=== PATIENT | female | born 1935 | race Caucasian/White ===

== ENCOUNTER 2025-08-29 14:05 | Observation (INO) | payer MEDICARE, SELFPAY ==
[2025-08-29 10:06] VITALS: BMI 28.4
[2025-08-29 10:07] VITALS: BP 105/56
[2025-08-29 10:52] VITALS: BMI 29.1
[2025-08-29 10:58] VITALS: BP 102/55
[2025-08-29 11:00] VITALS: BP 102/49
--- NOTE | 2025-08-29 11:21 | ED.GENMED ---
History of Present Illness
General
Chief Complaint: Urinary Symptoms
Source: patient and family
Exam Limitations: none
Time Seen by Provider: 08/29/25 11:00
Nursing documentation reviewed up to this point in time: agreed with
History of Present Illness
History of Present Illness:
89-year-old female with a past medical history of mild dementia, RA, history of breast cancer status postlumpectomy who presents to the emergency department for evaluation after seizure-like episode. Family is at bedside and provides most of
history. Apparently she was in her normal state of health prior to episode today�she is able to feed herself, ambulatory with a walker, able to have basic conversation but has mild dementia, not able to tell you the year and poor short-term recall.
Family says that she was sitting at table this morning and she had witnessed episode where she suddenly had blank forward stare and was not responding and had some rhythmic movement of her left hand. No tonic-clonic movements in the rest of her
body. She did not fall down. It sounds like this episode lasted for few minutes and after this she was very lethargic/confused for about 15 minutes and since then has returned to her baseline. She has never had similar episode in the past, no
known history of seizures. She again was in her normal state of health prior to onset has not been sick with fever, chills, abdominal pain; the family suggest that her urine may have been a bit more concentrated recently but otherwise nothing of
note as far as symptoms leading up to this. When asked the patient how she is feeling she indicates that she is comfortable and not in any pain. She is very limited historian due to her dementia--she cannot tell me exactly what happened and is not
sure exactly why she is here.
Review of Systems
Review of Systems
Unable to obtain full review of systems at this time due to: dementia
All Other Systems: Not applicable
Phy Exam
Physical Exam
Physical Exam:
General: Awake, alert, oriented x2; no acute distress
Head: Normocephalic, atraumatic
Eyes: Conjunctiva normal, EOMI, pupils equal round reactive to light bilaterally
Throat: Airway intact, handling secretions, tongue atraumatic
Neck: Trachea midline, supple without meningismus
Lungs: Clear to auscultation bilaterally, no wheezing, rales, rhonchi
Heart: Regular rate and rhythm, no murmurs, gallops, or rubs
Abd: Soft, non distended, nontender
Neuro: Cranial nerves intact, speech fluid, motor and sensory intact in all extremities, following commands consistently
Skin: Warm and dry
Extremities: Warm and well-perfused
Scores
Heart Failure Risk
Heart Failure Risk Score: Not Applicable
Heart Score for Chest Pain Patients
STEMI patient?: Not applicable
Withdrawal Assessment of Alcohol
Withdrawal Assessment Completed?: Not applicable
Course
Orders/Labs/Results
Orders:
Orders
08/29/25 11:06
Electrocardiogram (*1) Urgent
Reason for Study: Fatigue / Weakness
EKG- Treatment ONCE
08/29/25 11:16
Electrocardiogram (*1) Urgent
Reason for Study: Fatigue / Weakness
CT Head W/o Iv Contrast Urgent
Comment:
Reason For Exam: seizure
EKG- Treatment ONCE
08/29/25 11:31
Basic Metabolic Panel Urgent
Complete Blood Count/With Diff Urgent
TSH Reflex To Free T4 Urgent
Troponin I Urgent
08/29/25 11:32
Urinalysis Reflex To Culture Urgent
Date Specimen was Collected: 08/29/25
Time Specimen was Collected: 11:30
Urine Microscopic Reflex Cult Urgent
Urine Culture Urgent
JOSE M Source: U
Specimen Description:
Date Specimen was Collected: 08/29/25
Time Specimen was Collected: 11:30
08/29/25 13:24
NEUROLOGY CONSULT Urgent
Consulting Provider: Blayne Coronel
Was physician already notified: Yes
Abnormal Lab Results
08/29/25 08/29/25
11:31 11:32
MCH 34.3 H pg
(27.0-31.0)
Absolute Neuts (auto) 7.1 H 10^3/uL
(1.4-6.5)
Absolute Lymphs (auto) 0.8 L 10^3/uL
(1.2-3.4)
Neutrophils % 81.3 H %
(42.2-75.2)
Lymphocytes % 9.0 L %
(20.5-51.1)
Chloride 108 H mmol/L
(98-107)
Urine Ketones 1+ A
(Negative)
Leukocyte Esterase Rfl 1+ A
(Negative)
Urine Albumin (Reflex) 2+ A
(Neg - Trace)
08/29/25 11:31
08/29/25 11:31
Vital Signs
Initial and Last Documented VS:
Initial Vital Signs
Temp Pulse Resp BP Pulse Ox
36.3 C 74 18 105/56 98
08/29/25 10:07 08/29/25 10:07 08/29/25 10:07 08/29/25 10:07 08/29/25 10:07
Last Documented Vital Signs
Temp Pulse Resp BP Pulse Ox
36.3 C 77 21 102/49 98
08/29/25 10:07 08/29/25 12:30 08/29/25 12:30 08/29/25 11:00 08/29/25 11:30
MDM/Problems Addressed
Differential Diagnosis Includes:
Seizure-like episode: Focal seizure�could be caused by electrolyte derangement, infection, brain mass, brain bleed; unlikely primary seizure disorder at this age... this could have also been a syncopal event although it sounds like her eyes were
open and she was staring rather than necessarily becoming abruptly unresponsive or slumping over, and there was some rhythmic movement of the hand and what sounds like a rather defined postictal period
MDM/Problems Addressed:
89-year-old female presents to the emergency department accompanied by her family after apparent seizure that she had episode of staring with rhythmic movement of the hand followed by about 15 minutes of lethargy/confusion before complete return to
her baseline. No history of seizures, has otherwise been in her normal state of health. Vital signs here are acceptable. Physical exam as above. Plan to check labs including CBC and CMP. Will check EKG. Check CT head. Check urinalysis. Will
monitor and reassess after the above.
CT head no acute abnormality. Labs and urinalysis pending.
Labs reviewed: CBC and CMP no clinically significant abnormalities. Urinalysis not clearly infected although micro and culture pending. No clear trigger for seizure at this point. Discussed with neurology recommended admission, MRI, EEG.
Discussed with hospitalist.
Chronic conditions affecting care:
Dementia
*Radiology
Radiology exam reviewed: radiology read reviewed
*Pulse Oximetry
SaO2: 98
Oxygen Mode of Delivery: Room air
Patient hypoxic: no (98%)
*Critical Care Note
Total Time (30-74mins, 75-104mins- exclusive of procedures): Not Applicable
Data Reviewed
Source: patient and family
Patient Management
Discussion with other providers: Hospitalist (Discussed with hospitalist) and Speech Language Pathologist (Discussed with neurologist)
Escalation/DeEscalation of care consider admission/obs:
Admission indicated
ED Attending Note
-
Portions of this chart may have been created with voice recognition software.� Occasional wrong word or��sound alike� substitutions may have occurred due to the inherent limitations of voice recognition software.
Discharge Plan
Departure
Patient Disposition: Admit
Date of Disposition: 08/29/25
Time of Disposition: 13:24
Admit to doctor: Jose Manuel
Presentation/result/management discussed w/ accepting MD/DO: Hospitalist
Discharge Problem:
Seizure
Referrals:
UNKNOWN - PT NOT,INTERVIEWE [Family Provider]
Interventions
Interventions:
*General Assessment Last Done: 08/29/25 10:07
*Neglect/Abuse Screening Last Done: 08/29/25 10:07
*ED COVID-19 Vaccine History Last Done: 08/29/25 10:07
*ED Influenza Vaccine History Last Done: 08/29/25 10:07
[facility] Fall Risk Assessment Tool Last Done: 08/29/25 10:52
*Risk Screen - Suicide (C-SSRS) Last Done: 08/29/25 10:07
ED-Female Genitourinary Assessment Last Done: 08/29/25 10:52
Discharge Date and Time
Print Language: SAO TOMEAN
[2025-08-29 12:14] LABS: Urine Character Slightly Cloudy (Clear)
[2025-08-29 12:50] LABS: Hematocrit 45.1 % (37.0-47.0); Hemoglobin 15.8 g/dL (12.0-16.0); Mean Corp Hgb Conc. 35.0 g/dL (33.0-37.0); Mean Corpuscular Volume 98.0 fL (81.0-99.0); Nucleated Red Blood Cells % 0 %; Platelet Count 158 10^3/uL (130-400); Red Cell Dist. Width 13.2 % (11.5-14.5)
[2025-08-29 13:21] LABS: Blood Urea Nitrogen 15 mg/dl (7-17); Calcium 9.8 mg/dl (8.4-10.2); Carbon Dioxide 23 mmol/L (22-30); Chloride 108 mmol/L (98-107); Estimated Creatinine Clearance 53 ml/min; Glucose 84 mg/dl (70-99); Sodium 138 mmol/L (135-145); eGFR > 60.00
--- NOTE | 2025-08-29 13:27 | HPS.HSE ---
Family Physician
-
Family Physician: INTERVIEWE UNKNOWN - PT NOT
Chief Complaint
-
episode of staring
History of Present Illness
Ms. Rosemarie Tan is a 89 yo woman with hx right breast CA s/p lumpectomy, dementia, frequent UTI's, RA who was brought in by family after an episode of staring without response and one hand shaking.
Patient unable to elaborate on history secondary to dementia. History obtained by daughter at bedside. Patient was at the kitchen table when had episode of staring off followed by right arm shaking. 911 was called. She remained confused for
20-30 minutes following. She is currently at baseline mentation. She never had similar event.
Patient denies pain.
No recent fever/chills/cough. No GI upset.
Medical History
Past Medical History
Past Medical History: Reports Other ( right breast CA s/p lumpectomy, dementia, frequent UTI's, RA)
Past Surgical History: Reports Orthopedic and Other (s/p lumpectomy )
Social History
Unable to obtain full social history at this time due to: Dementia
Tobacco: Non-smoker
Alcohol: None
Family History
Family History: Not pertinent
Allergies / Home Medications
Allergies reflects when Allergies were last updated in [employer].
Home Medications with original date entered in [employer]
Allergy/Medication List:
*awaiting home med recs
Review of Systems
-
History Source: Patient
A 12 point ROS was completed and negative except as noted: Yes
Physical Exam
Vital Signs
Vital Signs
Temp Pulse Resp BP Pulse Ox
97.4 F 77 21 102/49 98
08/29/25 10:07 08/29/25 12:30 08/29/25 12:30 08/29/25 11:00 08/29/25 11:30
Physical Exam
General: No Apparent Distress
HEENT: PERRLA
Respiratory: Clear; No Wheezes
Cardiac: S1/S2 and Regular Rhythm
GI: Soft and Non Tender
Musculoskeletal: No Edema
Skin: Warm and Dry; No Rash
Neuro: Awake, Alert, Oriented (x1; does not know location or date (clued to it was iram)) and Other (HERB, EOMI, no facial asymmetry, follows commands, no pronator drift )
Psych: Calm
Laboratory Results
-
08/29/25 11:31
08/29/25 11:31
Laboratory Results
Total Bilirubin Cancelled 08/29/25 11:31
AST Cancelled 08/29/25 11:31
ALT Cancelled 08/29/25 11:31
Alkaline Phosphatase Cancelled 08/29/25 11:31
Data Reviewed
-
Diagnostic Radiology: Report Reviewed by me
Lab Data: Labs Reviewed by me
Impression/Plan
-
Ms. Rosemarie Tan is a 89 yo woman with hx right breast CA s/p lumpectomy, dementia, frequent UTI's, RA who was brought in by family after an episode of staring without response and one hand shaking.
Triage VS: P 74, RR 18, BP 105/56, SpO2 98%
LABS: WBC 8.8, Hg 15.8, PLT 158, Na 138, Cl 108, Cr 0.8, Glucose [address]
IMPRESSION:
No acute intracranial abnormality noted.
Mild atrophy.
Ventricles out of proportion to the sulci. This can be seen with normal pressure hydrocephalus.
Mild periventricular small vessel ischemic disease
Complex Partial Seizure
-admit to obs, telemetry
-EEG
-MRI
-Neurological checks
-Seizure Precautions
-formal Neurology consult - follow up further recs (sent TT to Dr. Coronel)
Dementia
Frequent UTI's
Breast cancer s/p lumpectomy
DVT PPx Lovenox subQ
DNR - discussed on admission
*awaiting final med rec
[2025-08-29] MEDS: NSS 500 IV (13:47)
[2025-08-29 14:09] LABS: Urine Red Blood Cell None Seen /HPF (0-2)
--- NOTE | 2025-08-29 14:39 | EDCM ---
Chart reviewed, I met with pt and daughter bedside in ED. Pt was living independently in [place] but has been staying with her daughter in [place]. 2 SH but pt has first floor set up, Lift chair, hospital bed, shower chair, grab rails in
shower, WC.
Pt needs assistance with ADLs and personal care, ambulates with RW.
PMH includes Mild dementia, RA and Breast cancer.
LEAVITT reviewed and signed by daughter, copy left with her.
Confirms prescription coverage.
Hx HH after femur fracture, also [facility] and [facility]
PCP: Dr Gurwinder Miller, [facility] in [facility]
Local Pharmacy: [facility], also uses [facility]
Discharge disposition pending ongoing medical evaluation, CM will continue to follow for all discharge planning needs.
[2025-08-29 15:00] VITALS: BP 139/80
[2025-08-29 15:20] LABS: ALT (SGPT) 22 U/L (0-35); AST (SGOT) 24 U/L (14-36); Albumin 3.8 g/dl (3.5-5.0); Alkaline Phosphatase 105 U/L (38-126); Magnesium 2.0 mg/dl (1.6-2.3); Potassium 4.2 mmol/L (3.5-5.1); Total Protein 6.4 g/dl (6.3-8.2)
[2025-08-29 15:32] LABS: Troponin I < 0.012 ng/ml
[2025-08-29] MEDS: LOVENOX 40 MG SC (17:16)
[2025-08-29 19:36] VITALS: BP 113/56
[2025-08-29 23:39] VITALS: BP 118/66
[2025-08-30 02:59] VITALS: BP 102/61
[2025-08-30 07:00] VITALS: BP 119/68
[2025-08-30 07:33] LABS: Hematocrit 42.3 % (37.0-47.0); Hemoglobin 14.9 g/dL (12.0-16.0); Mean Corp Hgb Conc. 35.2 g/dL (33.0-37.0); Mean Corpuscular Volume 98.4 fL (81.0-99.0); Platelet Count 147 10^3/uL (130-400); Red Cell Dist. Width 12.8 % (11.5-14.5)
[2025-08-30 07:38] LABS: Blood Urea Nitrogen 13 mg/dl (7-17); Calcium 9.2 mg/dl (8.4-10.2); Carbon Dioxide 23 mmol/L (22-30); Chloride 109 mmol/L (98-107); Estimated Creatinine Clearance 61 ml/min; Glucose 86 mg/dl (70-99); Magnesium 2.0 mg/dl (1.6-2.3); Potassium 4.0 mmol/L (3.5-5.1); Sodium 138 mmol/L (135-145); eGFR > 60.00
--- NOTE | 2025-08-30 09:19 | CON.NEURO ---
Addendum entered and electronically signed by Blayne Coronel MD 08/30/25 23:04:
I saw and examined the patient along with the Nurse Practitioner Catarina Woo, and I agree with her assessment and plan. Given below is my addendum.
The patient is an 89 years old female, with a history of dementia, who was brought to the ED after she had a seizure-like episode at home. According to her grand son who saw her having a staring spell in which she was unable to talk and her eyes
were rolled upwards, and she also had shaking of the right arm. The whole episode lasted for about 20 seconds and then she had a postictal state for about 10 minutes. According to the patient's daughter, who was present at the bedside, the patient
has dementia and at this time she has returned to her baseline mental status. The patient has a history of falls in the past, but no witnessed seizure-like activity has been reported in the past.
On Neurologic Examination, she is alert and is able to tell her name, but she is unable to tell her age or the month. She had antigravity strength in bilateral upper and lower extremities.
Plan:
MRI brain with and without contrast
EEG
Seizure precautions
Fall precautions.
Will follow.
Original Note:
Neuro Assessment/Plan
Assessment
Patient is an 89-year-old female with a past medical history of dementia, RA, history of breast cancer status postlumpectomy who presents to [facility] on 08/29/2025 for evaluation after seizure-like episode.
Head CT 08/29/2025: No acute intracranial abnormality noted. Mild atrophy. Ventricles out of proportion to the sulci. This can be seen with normal pressure hydrocephalus. Mild periventricular small vessel ischemic disease.
Brain MRI: pending
EEG: pending
Plan
Impression: Abrupt onset of staring spell followed by rhythmic movements of left head, differentials include focal seizure although CBC and CMP with no clinically significant abnormalities, afebrile, UA not clearly infected although culture pending.
No clear trigger for seizure at this point.
-obtain brain MRI with/without to look for structural abnormalities
-obtain EEG to rule out seizures
-seizure precautions
-PT/OT evaluations
-pending results of EEG/MRI and if she continues to have events will have to start antiepileptic medication
Plan of care discussed with Dr. Coronel, hospitalist, daughter and patient
Consultation
Order
Date of Consultation: 08/30/25
Requesting Provider: hospitalist/ Dr. Iwona Chang
Reason for Consult: seizure like activity
Subjective/Objective
Subjective Data
Date of Service: August 30, 2025
Patient has dementia and is a vague and incomplete historian. Daughter is at bedside and her grandson was contacted via phone. All information obtained from the chart,family and her providers. Patient is an 89-year-old female with a past medical
history of dementia, RA, history of breast cancer status postlumpectomy who presents to [facility] on 08/29/2025 for evaluation after seizure-like episode. Apparently she was in her normal state of health prior to episode today�she is able to feed
herself, ambulatory with a walker, able to have basic conversation but has mild dementia, not able to tell you the year and poor short-term recall. Family says that she was sitting at table yesterday morning and she had witnessed episode where she
suddenly had blank forward stare and was not responding, head 'bobbing' and had some rhythmic movement of her right hand. No tonic-clonic movements in the rest of her body. She did not fall down. Denies urinary/bowel incontinence during episode,
denies tongue/cheek biting. It sounds like this episode lasted for 20-45 seconds and after this she was very lethargic/confused for about 10-15 minutes and since then has returned to her baseline. She has never had similar episode in the past, no
known history of seizures. She again was in her normal state of health prior to onset has not been sick with fever, chills, abdominal pain; the family suggest that her urine may have been a bit more concentrated recently but otherwise nothing of
note as far as symptoms leading up to this. Her head CT in the ED showed no acute intracranial abnormalities. Labs and electrolytes unremarkable. When asked the patient how she is feeling she indicates that she is comfortable and not in any pain.
Objective Data
Vital Signs
Temp Pulse Resp BP Pulse Ox
97.5 F 80 14 119/68 95
08/30/25 07:00 08/30/25 07:00 08/30/25 07:00 08/30/25 07:00 08/30/25 07:00
Lab Results
08/30/25 06:57
08/30/25 06:57
Sodium 138 mmol/L (135-145) 08/30/25 06:57
Potassium 4.0 mmol/L (3.5-5.1) 08/30/25 06:57
BUN 13 mg/dl (7-17) 08/30/25 06:57
Glucose 86 mg/dl (70-99) 08/30/25 06:57
Calcium 9.2 mg/dl (8.4-10.2) 08/30/25 06:57
Patient Allergies
nickel Allergy (Verified 08/29/25 10:16)
Unknown
Physical Exam
-
General: Appears Stated Age
HEENT: Normocephalic and Atraumatic
Neck: Full Range of Motion
Respiratory: No Dyspnea
Cardiac: No JVD
GI: Non-distended
Skin: Unremarkable
Extremities: No Clubbing, No Cyanosis and No Edema
Psych: Apparent Dementia; Negative Intact Judgement/Insight
Extended Neurological Exam
Mood & Affect: Mood Unremarkable
Attention Span & Concentration: Awake, Alert, Interactive and Other (oriented to self, pleasant)
Memory: Unable to Recall and Unable to Recall Personal History
Speech: Moderately Reduced Output
Cranial Nerve VII: Facial Symmetry: Normal Facial Symmetry
Muscle Strength, Overall: Full Throughout
Pronator Drift: No Drift in Upper Extremities and No Drift in Lower Extremities
Coordination: Asoiib-skpt-jdmilg Testing Unremarkable and Vkrv-Ppxx-Rjtk movements intact bilaterally
Data Reviewed
-
CT Head: Report Reviewed and Image Reviewed
MRI Head: Ordered
EEG: Ordered
Medical Test Reports: Report Reviewed
Labs: Report Reviewed
Reviewed with: Physician
Old Records: Summarized
Medications
-
Active Medications
Generic Name Dose Route Start Last Admin
Trade Name Freq PRN Reason Stop Dose Admin
Acetaminophen 650 mg 08/29/25 15:58
Acetaminophen 325 Mg Tablet PO 09/26/25 15:57
Q4HPRN PRN
mild pain/MORLAES/temp> 100.4F
Bisacodyl 10 mg 08/29/25 15:58
Bisacodyl 10 Mg Rectal Suppository RECTAL 09/26/25 15:57
[id number] PRN
constipation
Enoxaparin Sodium 40 mg 08/29/25 18:00 08/29/25 17:16
Enoxaparin Sodium 40 Mg/0.4 Ml Syringe SC 09/26/25 17:59 40 mg
QPM HOMAR Administration
Polyethylene Glycol 17 grams 08/29/25 16:00
Polyethylene Glycol Powder 17 Grams Packet PO 09/26/25 15:59
DAILYPRN PRN
constipation
Senna/Docusate Sodium 1 tablet 08/29/25 20:00
Docusate W/Senna (Olga-Colace) Tablet PO 09/26/25 19:59
BIDPRN PRN
constipation
Home Medications
�Medication �Instructions �Recorded
Uqora Step 2 1 cap PO DAILY 08/29/25
Uqora Step 3 2 cap PO DAILY 08/29/25
acetaminophen 500 mg tablet 1,000 mg PO DAILYPRN PRN mild pain 08/29/25
(Tylenol Extra Strength)
estradiol 1 applic vaginal .TWO TIMES A WEEK 08/29/25
--- NOTE | 2025-08-30 09:57 | W.PN.HOSP.TC ---
Today's Communication/Plan
-
see plan below
Assessment / Plan
Assessment / Plan
Ms. Rosemarie Tan is a 89 yo woman with hx right breast CA s/p lumpectomy, dementia, frequent UTI's, RA who was brought in by family after an episode of staring without response and one hand shaking.
HEAD CT
IMPRESSION:
No acute intracranial abnormality noted.
Mild atrophy.
Ventricles out of proportion to the sulci. This can be seen with normal pressure hydrocephalus.
Mild periventricular small vessel ischemic disease
Complex Partial Seizure
-admit to obs, telemetry
-EEG
-MRI
-Neurological checks
-Seizure Precautions
-formal Neurology consult
-PT/OT
Dementia
Frequent UTI's
Breast cancer s/p lumpectomy
DVT PPx Lovenox subQ
DNR - discussed on admission
Anticipated Discharge: 24 - 48 hours
Subjective/Interval History
-
Date of Service: August 30, 2025
ambulating OK per RN
patient without new complaints
Objective Data
-
Labs:
Laboratory Results
08/30/25
06:57
WBC 6.0
Hgb 14.9
Hct 42.3
Plt Count 147
Sodium 138
Potassium 4.0
Chloride 109 H
Carbon Dioxide 23
BUN 13
Creatinine 0.7
Glucose 86
Calcium 9.2
Vital Signs:
Vital Signs
Temp Pulse Resp BP Pulse Ox
97.5 F 80 14 119/68 95
08/30/25 07:00 08/30/25 07:00 08/30/25 07:00 08/30/25 07:00 08/30/25 07:00
Review of Systems
-
Unable to obtain full review of systems at this time due to: Dementia
History Source: Patient
Physical Exam
-
General: No Apparent Distress
HEENT: Normocephalic and Atraumatic
Respiratory: Negative Wheezes
Cardiac: Regular Rhythm and S1/S2
GI: Soft and Nontender
Musculoskeletal: No Edema
Skin: Warm and Dry; Negative Rash
Neuro: Awake and Alert; Negative Oriented
Psych: Calm and Apparent Dementia
Data Reviewed
-
Diagnostic Radiology: Report Reviewed by me
Labs: Labs Reviewed by me
[2025-08-30 11:00] VITALS: BP 125/63
[2025-08-30 14:28] LABS: TSH 1.77 uIU/ml (0.47-4.68)
[2025-08-30 14:32] LABS: Ferritin 168.0 ng/ml (11.1-264.0)
[2025-08-30 15:05] LABS: Folate 17.0 ng/ml (2.76-20); Vitamin B12 279 pg/ml (239-931)
--- NOTE | 2025-08-30 15:11 | EEG.RPT ---
Electroencephalogram Report
Recording
Date of EE08/30/25
Type of EEG: Routine
Done with Video Recording: Yes
Patient Status: Inpatient
Recording Conditions: Awake and Drowsy
Hyperventilation Performed: No
Photic Stimulation Performed: Yes
Report
Method:
A 21 channel digitized EEG was done on this patient. The 10/20 International system of electrode placement was used. ECG was monitored. Video was recorded.
Report:
The duration of the EEG was 29 minutes.
The posterior dominant rhythm reaches up to 10 Hz.
The background rhythm did not show any asymmetry of amplitude or frequency between the hemispheres.
Drowsiness was seen.
Hyperventilation was not done.
Photic stimulation did not show any abnormal change.
There was no definite epileptiform activity seen during this study.
Clinical Interpretation:
This is a normal routine, awake and drowsy state EEG. A normal study cannot rule out a seizure. Clinical correlation recommended.
[2025-08-30] MEDS: LOVENOX 40 MG SC (17:04)
[2025-08-30 19:18] VITALS: BP 114/79
[2025-08-30 22:47] VITALS: BP 121/69
[2025-08-31 04:00] VITALS: BP 117/57
[2025-08-31 05:08] VITALS: BP 117/57
[2025-08-31 07:20] VITALS: BP 119/57
--- NOTE | 2025-08-31 09:50 | W.PN.HOSP.TC ---
Today's Communication/Plan
-
awaiting PT
follow up futher Neurology recs
Assessment / Plan
Assessment / Plan
. Rosemarie Tan is a 89 yo woman with hx right breast CA s/p lumpectomy, dementia, frequent UTI's, RA who was brought in by family after an episode of staring without response and one hand shaking.
HEAD CT
IMPRESSION:
No acute intracranial abnormality noted.
Mild atrophy.
Ventricles out of proportion to the sulci. This can be seen with normal pressure hydrocephalus.
Mild periventricular small vessel ischemic disease
Brain MRI
IMPRESSION:
No acute intracranial abnormality noted.
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
Complex Partial Seizure
-admit to obs, telemetry
-EEG mildly abnormal, discussing AED with Neurology
-MRI with old lacunar infarcts, will discuss aspirin with daughter
-Neurological checks
-Seizure Precautions
- Neuro consult appreciated
-awaiting PT/OT
Dementia
Frequent UTI's
Breast cancer s/p lumpectomy
DVT PPx Lovenox subQ
DNR - discussed on admission
Anticipated Discharge: Within 24 hours
Subjective/Interval History
-
Date of Service: August 31, 2025
no new complaints
Objective Data
-
Vital Signs:
Vital Signs
Temp Pulse Resp BP Pulse Ox
97.4 F 68 16 119/57 96
08/31/25 07:20 08/31/25 07:20 08/31/25 07:20 08/31/25 07:20 08/31/25 07:20
I&O
08/30/25 08/31/25 09/01/25
06:59 06:59 06:59
Intake Total 240 / 240
Balance 240 / 240
Review of Systems
-
Unable to obtain full review of systems at this time due to: Dementia
History Source: Patient
Physical Exam
-
General: No Apparent Distress
HEENT: Normocephalic and Atraumatic
Respiratory: Negative Wheezes
Cardiac: Regular Rhythm and S1/S2
GI: Soft and Nontender
Musculoskeletal: No Edema
Skin: Warm and Dry; Negative Rash
Neuro: Awake and Alert; Negative Oriented
Psych: Calm and Apparent Dementia
Data Reviewed
-
Diagnostic Radiology: Report Reviewed by me
Labs: Labs Reviewed by me
[2025-08-31 11:00] VITALS: BP 114/57
[2025-08-31] MEDS: VITAMIN B-12 1000 MCG PO (11:28)
--- NOTE | 2025-08-31 12:39 | W.DS.TRANS ---
DC Summary - [facility]aver
-
Discharge Instructions:
Discharge Diagnosis/Procedures complex partial seizure
Diet Regular
Activity As tolerated
Driving Restrictions No driving
Bathing Restrictions None
Instructions:
Stand-Alone Forms: Back to School
Changes to Home Medications: Yes
Discharge Medications:
DC Medications w/original date entered in [facility]
Uqora Step 2 1 cap PO DAILY 08/29/25
Uqora Step 3 2 cap PO DAILY 08/29/25
acetaminophen 500 mg tablet (Tylenol Extra Strength) 1,000 mg PO DAILYPRN PRN mild pain 08/29/25
estradiol 1 applic vaginal .TWO TIMES A WEEK 08/29/25
aspirin 81 mg chewable tablet 81 mg PO DAILY #30 tabs 08/31/25
cyanocobalamin (vitamin B-12) 1,000 mcg capsule 1,000 mcg PO DAILY #30 caps 08/31/25
Home Medication Changes
Addition of Aspirin and Vitamin B12
Pending Results: No
--- NOTE | 2025-08-31 12:40 | W.DCSUMMARY ---
Discharge Summary
Discharge Data
Date of Admission: 08/29/25
Date of Discharge: 08/31/25
-
Pending Results: No
Hospital Course
Discharging Physician : Dr. Iwona Chang
Disposition : Home
Principal Discharge diagnosis : Complex Partial Seizure
Hospital Course :
Ms. Rosemarie Tan is a 89 yo woman with hx dementia (short term memory loss at baseline), right breast CA s/p lumpectomy, frequent UTI's, RA who was brought in by family after an episode of staring without response and one hand shaking. She remained
altered from baseline for 20 minutes following. Triage vitals stable, labs without leukocytosis, glucose 84. Head CT without acute event. She was admitted to medicine with Neurology consulting for further work-up of complex partial seizure. MRI
with finding of old lacunar infarct. Per Neurology, EEG reading without defeinite epileptiform activity seen and no need to start AED at this time. She is referred to Neurology as outpatient.
She is started on Aspirin 81mg daily for finding of old stroke.
She worked with PT prior to discharge.
Time spent on discharge was 31 minutes.
Important imaging findings :
HEAD CT
IMPRESSION:
No acute intracranial abnormality noted.
Mild atrophy.
Ventricles out of proportion to the sulci. This can be seen with normal pressure hydrocephalus.
Mild periventricular small vessel ischemic disease
Brain MRI
IMPRESSION:
No acute intracranial abnormality noted.
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
Procedure findings :
Discharge Plan
-
Patient Disposition: Home (Routine Discharge)
Discharge Diagnosis/Procedures: complex partial seizure
Diet: Regular
Activity: As tolerated
Driving Restrictions: No driving
Bathing Restrictions: None
Stand Alone Forms: Back to School
Referrals:
Nurys Schulz CRNP [[employer]ified Professional Person[employer], Neurology] - in one to two weeks
Referral Note: hospitalized for one episode complex partial seizure;
UNKNOWN - PT NOT,INTERVIEWE [Family Provider] - in less than 1 week
Additional Discharge Medication Instructions: You are started on Aspirin 81mg daily for finding of prior stroke. Please discuss this with your PCP.
You are started on Vitamin B12 for low Vitamin B12 levels.
Prescriptions:
New
aspirin 81 mg Tablet,Chewable
81 mg PO DAILY Qty: 30 0RF
cyanocobalamin (vitamin B-12) 1,000 mcg capsule
1,000 mcg PO DAILY Qty: 30 0RF
Continued
acetaminophen [Tylenol Extra Strength] 500 mg Tablet
1,000 mg PO DAILYPRN PRN (Reason: mild pain)
Uqora Step 2
1 cap PO DAILY
Patient Comments:
08/29/2025, take w/ Uqora Step 3 daily.
Uqora Step 3
2 cap PO DAILY
Patient Comments:
08/29/2025, take w/ Uqora Step 2 daily.
estradiol cream
1 applic vaginal .TWO TIMES A WEEK
Patient Comments:
08/29/2025, per daughter, pt uses estradiol cream twice a week; was not able to confirm with pharmacy records or ecw.
Discharge Orders:
Discharge Patient (As Directed); Ordered 08/31/25
Ordered By: Iwona Chang
Discharge Date and Time
Print Language: EGYPTIAN
[2025-08-31 12:50] VITALS: BP 131/76; PULSE 86; O2SAT 94
--- NOTE | 2025-08-31 12:56 | CM ---
Discharge home today w/ daughter. Spoke w/ daughter, aware of discharge today.
Discussed w/ therapy, will recommend SNF unless family is able to provide 24 hour care as patient needs assistance w/ everything.
Discussed w/ daughter, doesn't want patient to go to SNF. Stated she and her son can manage patient at home. Declined HH when CM offered
Daughter will transport patient home
Plan: Home w/ daughter in [place]. Daughter declined HH
[2025-08-31] MEDS: LOW STRENGTH ASPIRIN 81 MG PO (13:20)
--- NOTE | 2025-08-31 15:01 | W.PN.NEURO.1 ---
Today's Communication / Plan
-
On Neurologic Examination, she is alert and is able to tell her name, but she is unable to tell her age or the month. She had antigravity strength in bilateral upper and lower extremities.
MRI of the brain without contrast does not show any acute acute abnormality.
EEG is normal.
Fall precautions.
The vitamin B12 level was 279. The patient was started on cyanocobalamin 1000 mcg p.o. daily.
Follow-up with neurology clinic for possible dementia.
Will sign off please call if any question.
Neuro Assessment/Plan
Assessment
Patient is an 89-year-old female with a past medical history of dementia, RA, history of breast cancer status postlumpectomy who presents to [facility] on 08/29/2025 for evaluation after seizure-like episode.
Head CT 08/29/2025: No acute intracranial abnormality noted. Mild atrophy. Ventricles out of proportion to the sulci. This can be seen with normal pressure hydrocephalus. Mild periventricular small vessel ischemic disease.
Brain MRI: pending
EEG: pending
Plan
Impression: Abrupt onset of staring spell followed by rhythmic movements of left head, differentials include focal seizure although CBC and CMP with no clinically significant abnormalities, afebrile, UA not clearly infected although culture pending.
No clear trigger for seizure at this point.
-obtain brain MRI with/without to look for structural abnormalities
-obtain EEG to rule out seizures
-seizure precautions
-PT/OT evaluations
-pending results of EEG/MRI and if she continues to have events will have to start antiepileptic medication
Plan of care discussed with Dr. Coronel, hospitalist, daughter and patient
Subjective/Objective
Subjective Data
Date of Service: August 31, 2025
The patient is an 89 years old female, with a history of dementia, who was brought to the ED after she had a seizure-like episode at home. According to her grand son who saw her having a staring spell in which she was unable to talk and her eyes
were rolled upwards, and she also had shaking of the right arm. The whole episode lasted for about 20 seconds and then she had a postictal state for about 10 minutes. According to the patient's daughter, who was present at the bedside, the patient
has dementia and at this time she has returned to her baseline mental status. The patient has a history of falls in the past, but no witnessed seizure-like activity has been reported in the past.
On Neurologic Examination, she is alert and is able to tell her name, but she is unable to tell her age or the month. She had antigravity strength in bilateral upper and lower extremities.
MRI of the brain without contrast does not show any acute acute abnormality.
EEG is normal.
Fall precautions.
Follow-up with neurology clinic for possible dementia.
Objective Data
Vital Signs
Temp Pulse Resp BP Pulse Ox
36.5 C 80 16 114/57 95
08/31/25 11:00 08/31/25 11:00 08/31/25 11:00 08/31/25 11:00 08/31/25 11:00
Lab Results
08/30/25 06:57
08/30/25 06:57
Sodium 138 mmol/L (135-145) 08/30/25 06:57
Potassium 4.0 mmol/L (3.5-5.1) 08/30/25 06:57
BUN 13 mg/dl (7-17) 08/30/25 06:57
Glucose 86 mg/dl (70-99) 08/30/25 06:57
Calcium 9.2 mg/dl (8.4-10.2) 08/30/25 06:57
Vitamin B12 279 pg/ml (239-931) 08/30/25 06:57
Patient Allergies
nickel Allergy (Verified 08/29/25 10:16)
Unknown
== END 2025-08-31 15:18 | disposition home or self-care (01) ==
LOC: 4 WEST ACU 14:05
PROVIDERS: ADMITTING PHYSICIAN Student in an Organized Health Care Education/Training Program; CONSULT PHYSICIAN Psychiatry & Neurology Neurology; EMERGENCY PHYSICIAN Emergency Medicine
DX: G40.209 Localization-related (focal) (partial) symptomatic epilepsy and epileptic syndromes with complex partial seizures, not intractable, without status epilepticus (principal); R53.1 Weakness; R53.83 Other fatigue; Z66 Do not resuscitate; Z79.82 Long term (current) use of aspirin; Z85.3 Personal history of malignant neoplasm of breast; Z86.73 Personal history of transient ischemic attack (TIA), and cerebral infarction without residual deficits; Z87.440 Personal history of urinary (tract) infections; Z91.81 History of falling
CPT/HCPCS: 70450; 70551; 80048; 80076; 81003; 81015; 82607; 82728; 82746; 83735; 84132; 84439; 84443; 84484; 85025; 85027; 87086; 93005; 95816; 96360; 97163; 99285; G0378